=== PATIENT | male | born 1965 | race Hispanic/Latino ===

== ENCOUNTER 2025-08-17 18:15 | Emergency (ER) | payer SELFPAY ==
[~2025-08-17] VITALS: Ht 167.6 cm; Wt 61.2 kg
--- NOTE | 2025-08-17 18:19 | ERN ---
ED Note History of Present Illness Stated Complaint: MEDICAL CLEARANCE Chief Complaint: Medical Clearance Time Seen by MD: 18:16 Dictation: 59-YEAR-OLD MALE COME TO THE EMERGENCY ROOM VIA EMS FROM THE [facility]. HE HAD IN FOREARM WITH THE STAFF THAT HE WAS HAVING SOME SUBSTERNAL CHEST PAIN AND DID NOT RADIATE. HE HAD TOLD HIM THAT HE HAS HAD PAIN COOL FOR SEVERAL MONTHS AFTER HIS FROM A HEART ATTACK. HE DENIES ANY CHEST PAIN AT THIS TIME. HE STATES HE HAS FROM [facility] AND NEVER SOUGHT HEALTH CARE FOR HIS CHEST PAIN WHILE HE WAS THERE. Allergies: Coded Allergies: No Known Allergies (Unverified Allergy, Unknown, 08/17/25) Past Medical History RN Note Reviewed/Agreed w/PFSH: Yes Review of System Dictation CONSTITUTIONAL: NEGATIVE EXCEPT FOR HPI HEAD/FACE: NEGATIVE EXCEPT FOR HPI EENT: NEGATIVE EXCEPT FOR HPI RESPIRATORY: NEGATIVE EXCEPT FOR HPI INTERMITTENT CHEST PAIN, RESOLVED NOW GASTROINTESTINAL/ABDOMINAL: NEGATIVE EXCEPT FOR HPI GENITOURINARY: NEGATIVE EXCEPT FOR HPI MUSCULOSKELETAL: NEGATIVE EXCEPT FOR HPI INTEGUMENTARY: NEGATIVE EXCEPT FOR HPI NEUROLOGICAL/PSYCH: NEGATIVE EXCEPT FOR HPI HEMATOLOGIC/LYMPHATIC: NEGATIVE EXCEPT FOR HPI ALL SYSTEMS NEGATIVE, EXCEPT NOTED ABOVE. 13 POINT REVIEW OF SYSTEMS ASSESSED AND ALL NEGATIVE EXCEPT FOR ABOVE. Initial Vital Sign VS Vital Signs Date Time Temp Pulse Resp B/P (MAP) Pulse Ox O2 Delivery O2 Flow Rate FiO2 08/17/25 18:16 98.8 66 20 165/54 98 Room Air 0 Physical Exam Dictation VITAL SIGNS REVIEWED GENERAL APPEARANCE: ALERT, ORIENTED X 3, NO ACUTE DISTRESS, WELL DEVELOPED, NOURISHED. 0/10 PAIN AT THIS TIME. HEAD AND FACE: NON-TRAUMATIC. EYES: PERRL, PINK CONJUNCTIVAS, EYELID NO TRAUMA, ANTERIOR CHAMBER WITH ARCUS SENILIS. EARS: PINNAS INTACT AND NO SIGNS OF TRAUMA OR ERYTHEMA EAR CANALS CLEAR AND NO DISCHARGE TM NO ERYTHEMA NOSE: NO DISCHARGE, NO BLEEDING. OROPHARYNX: MOUTH NORMAL, TONGUE PINK, PHARYNX CLEAR,NO ERYTHEMA, TONSILS NO EXUDATES, NO ABSCESSES NOTED, MUCOUS MEMBRANE MOIST NECK: SUPPLE, NON-TENDER, NO THYROMEGALY, NO MASSES, NO JVD, NO BRUITS BREAST:DEFERRED CHEST:NO TENDERNESS, NO CREPITUS, NO PARADOXICAL MOVEMENT, NO RETRACTIONS LUNGS:CLEAR, WELL-VENTILATED, SYMMETRIC, NO RALES, NO WHEEZING, NO RHONCHI, NO STRIDOR, GOOD BREATH SOUNDS BILATERALLY HEART: REGULAR RATE, REGULAR RHYTHM, NO MURMUR, NO GALLOPS VASCULAR: NO PERIPHERAL EDEMA, ABDOMEN: SOFT, POSITIVE BOWEL SOUNDS, NONDISTENDED, NO GUARDING, NONTENDER, NO REBOUND, NO MASSES NO HEPATOMEGALY, NO SPLENOMEGALY, NO TORREZ'S SIGN, NO HERNIAS. NO FOCAL PAIN WITH THE ABDOMINAL EXAM RECTAL: DEFERRED GENITAL: DEFERRED NEUROLOGICAL: NORMAL SPEECH, MOTOR FUNCTION INTACT, SENSORY FUNCTION INTACT MUSCULOSKELETAL: NECK NONTENDER, FULL RANGE OF MOTION, BACK NONTENDER, FULL RANGE OF MOTION, EXTREMITIES: NONTENDER, FULL RANGE OF MOTION SKIN: COLOR PINK, DRY, NO TURGOR, NO RASH, NO LACERATIONS, NO ABRASIONS, NO CONTUSIONS. LYMPHATIC: DEFERRED Results (Laboratory/Radiology) Laboratory/Radiology Laboratory Tests Test 08/17/25 18:55 Troponin I High Sensitivity 6 ng/L (4-75) Labs Reviewed?: Yes EKG: (+) NSR EKG Comment: EKG NORMAL SINUS RHYTHM/HEART RATE 61/AXIS NORMAL/NO ECTOPY. ED Course ED Course Orders Procedure Category Date Status Time 12 Lead Ekg Tracing- EKG 08/17/25 Complete Technical 18:26 Troponin I High LAB 08/17/25 Complete Sensitivity 18:26 Vital Signs Date Time Temp Pulse Resp B/P (MAP) Pulse Ox O2 Delivery O2 Flow Rate FiO2 08/17/25 18:16 98.8 66 20 165/54 98 Room Air 0 1930/PATIENT STATES HE HAD HAS A NO CHEST PAIN AT THIS TIME AND STATES IT HAS BEEN GOING OFF AND ON FOR SEVERAL MONTHS AFTER THE OF HIS . PATIENT IS MEDICALLY CLEARED FOR [facility] 1931/ PATIENT WAS BEING DISCHARGED HE WAS COMPLAINING OF EPIGASTRIC PAIN AND ASKED ME FOR A ZANTAC FOR HIS GASTRITIS. HEART Score Response (Comments) Value History: Low suspicion (0) 0 Age: 45-65yrs (+1) 1 Risk Factors: 1-2 risk factors (+1) 1 Initial Troponin: Normal limit (0) 0 Total 2 Medical Decision Making MDM MEDICAL DISCHARGE MAKING BASED ON EKG AND TROPONIN EKGS TEXT BOOK NORMAL HIGH SENSITIVITY TROPONIN SIX PATIENT MEDICALLY CLEARED FOR [facility] DX & DISP Disposition: Discharge Departure Impression: Primary Impression: Acute gastritis Additional Impression: Anxiety Condition: Stable Scripts Sucralfate (Carafate) 1 Gram Tablet 1 GM PO ACHS for 10 Days, #40 TAB Prov: SIDNEY MEEKS 08/17/25 Pantoprazole Sodium (Protonix) 40 Mg Tablet.dr 1 TAB PO DAILY for 30 Days, #30 TAB 0 Refills Prov: SIDNEY MEEKS 08/17/25 Additional Instructions: FOLLOW-UP WITH PRIMARY CARE PROVIDER IN 1 TO 2 DAYS. TAKE MEDICATIONS DIRECT ED HERE IN THE EMERGENCY ROOM. OKAY TO CONTINUE HOME MEDICATIONS UNLESS OTHERWISE DISCUSSED DURING YOUR VISIT IN THE EMERGENCY ROOM TODAY. RETURN TO YOUR NEAREST EMERGENCY ROOM IF SYMPTOMS WORSEN OR IF THERE IS NO IMPROVEMENT. CALL 911 IF YOU NEED IMMEDIATE ASSISTANCE. TAKE TYLENOL OR MOTRIN [id number] NEEDED AND IF NO CONTRAINDICATIONS ARE PRESENT. INCREASE ORAL HYDRATION. A WOUND CULTURE OR URINE CULTURE WAS ORDERED HERE IN THE EMERGENCY ROOM DEPARTMENT PLEASE FOLLOW-UP WITH PRIMARY CARE PROVIDER AND ADVISE THEM TO GET REPEAT PORTS FROM OUR FACILITY. IF YOU HAD ANY MINH WRAP/SPLINTS THAT WERE APPLIED HERE, PLEASE DO NOT REMOVE THEM UNTIL YOU SEE YOUR PRIMARY CARE OR SPECIALTY. TAKE PROTONIX DIRECTED DAILY. TAKE CARAFATE DIRECTED 30 MINUTES BEFORE MEALS AND BEDTIME FOR THE NEXT 10 DAYS. WATER FOR FLUIDS ONLY WITH MEALS. NO ICE TEA, NO COFFEE, NO SODA POP, NO ALCOHOLIC BEVERAGES, NO SPICY FOODS UNTIL CLEARED BY YOUR DOCTOR. MEDICALLY CLEARED FOR PSYCHIATRIC EVALUATION AND TREATMENT AT THE [facility] Time of Disposition: 19:30 I have reviewed the case, and I agree with, Diagnosis and Plan SIDNEY MEEKS Aug 17, 2025 18:19
--- NOTE | 2025-08-17 18:30 | NUR ---
PT WAS SENT FROM [facility] FOR EVALUATION OF CHEST PAIN X1 WEEK. UPON ARRIVAL PT REPORTS PAIN HAS RESOLVED. PT DENIES SI,HI,AND/OR PSYCHOSIS
--- NOTE | 2025-08-17 18:47 | EKG ---
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
[2025-08-17 20:04] VITALS: BP 138/83; PULSE 58; RESP 16; TEMP 98.1; O2SAT 97
[2025-08-17] MEDS: DICYCLOMINE HCL 10 MG/5 ML ML PO ONE (20:14)
[2025-08-17] MEDS: MAG/ALUM/SIMETH 30 ML UDCUP PO ONE (20:14)
[2025-08-17] MEDS: LIDOCAINE HCL 2% VISCOUS 15 ML UDCUP PO ONE (20:14)
--- NOTE | 2025-08-17 20:17 | NUR ---
REPORT GIVEN TO TAINA CLOUD AT [facility]
== END 2025-08-17 20:28 ==
LOC: EDH 18:15
DX: K29.00 Acute gastritis without bleeding (principal); F41.9 Anxiety disorder, unspecified
CPT/HCPCS: 84484; 93005; 99284